=== PATIENT | female | born 1960 | race Caucasian/White ===

== ENCOUNTER 2017-11-24 13:50 | Outpatient (CLI) | payer BC | END 2017-11-24 13:51 | disposition home or self-care (01) | LOC: BICMAMMO 13:50 | PROVIDERS: ATTEND Family Medicine | DX: Z12.31 Encounter for screening mammogram for malignant neoplasm of breast (principal); Z80.3 Family history of malignant neoplasm of breast | CPT/HCPCS: 77063; 77067 ==

== ENCOUNTER 2018-11-26 08:05 | Outpatient (CLI) | payer BC ==
--- NOTE | 2018-11-26 09:53 | MMO ---
Bilateral MAMMO Bilat Screen [facility]. CLINICAL HISTORY: Patient is 58 years old and is seen for screening. The patient has the following family history of breast cancer: maternal grandmother. The patient has no personal history of cancer. VIEWS: The views performed were: bilateral craniocaudal with tomosynthesis and bilateral mediolateral oblique with tomosynthesis. FILMS COMPARED: The present examination has been compared to prior imaging studies performed at [facility] on 10/11/2014, 11/24/2015, 10/17/2016 and 11/24/2017. MAMMOGRAM FINDINGS: There are scattered fibroglandular densities. Benign calcifications are noted bilaterally. There are no suspicious masses, suspicious calcifications, or new areas of architectural distortion. IMPRESSION: THERE IS NO MAMMOGRAPHIC EVIDENCE OF MALIGNANCY. A ROUTINE FOLLOW-UP MAMMOGRAM IN 1 YEAR IS RECOMMENDED. THE RESULTS OF THIS EXAM WERE SENT TO THE PATIENT. ACR BI-RADS Category 2 - Benign finding MAMMOGRAPHY NOTE: 1. A negative mammogram report should not delay a biopsy if a dominant of clinically suspicious mass is present. 2. Approximately 10% to 15% of breast cancers are not detected by mammography. 3. Adenosis and dense breasts may obscure an underlying neoplasm.
== END 2018-11-26 08:06 | disposition home or self-care (01) ==
LOC: BICMAMMO 08:05
PROVIDERS: ATTEND Family Medicine
DX: Z12.31 Encounter for screening mammogram for malignant neoplasm of breast (principal); Z80.3 Family history of malignant neoplasm of breast
CPT/HCPCS: 77063; 77067

== ENCOUNTER 2018-12-28 15:22 | Outpatient (CLI) | payer BC ==
--- NOTE | 2018-12-28 16:36 | ULT ---
SOFT TISSUE ULTRASOUND TRUNK: COMPARISON: None. FINDINGS: Corresponding to the area of palpation, in the deep fat, just below the superficial fascia and superf icial to the muscle, is a [id number]-[id number]-abiv 3.3 x 1 cm mass, which has a similar architecture to the fa t. This is a mobile mass. IMPRESSION: Soft tissue lipoma. POS: OFF
== END 2018-12-28 15:23 | disposition home or self-care (01) ==
LOC: BICULT 15:22
PROVIDERS: ATTEND Family Medicine
DX: L72.8 Other follicular cysts of the skin and subcutaneous tissue (principal)
CPT/HCPCS: 76705

== ENCOUNTER 2020-02-21 15:00 | Outpatient (CLI) | payer BC ==
--- NOTE | 2020-02-21 15:32 | RAD ---
XR Lumbar Spine 2 Or 3 View HISTORY: Low back pain COMPARISON: None. FINDINGS: Mild degenerative changes are present. No fracture, subluxation or bony destruction is identified. IMPRESSION: Mild lumbar spondylosis
== END 2020-02-21 15:01 | disposition home or self-care (01) ==
LOC: BICRAD 15:00
PROVIDERS: ATTEND Family Medicine
DX: M54.5 Low back pain (principal); M47.816 Spondylosis without myelopathy or radiculopathy, lumbar region
CPT/HCPCS: 36415; 72100; 80048; 82306; 83036; 85025

== ENCOUNTER 2021-12-17 13:55 | Outpatient (CLI) | payer BC | END 2021-12-17 13:56 | disposition home or self-care (01) | LOC: BICMAMMO 13:55 | PROVIDERS: ATTEND Family Medicine | DX: Z12.31 Encounter for screening mammogram for malignant neoplasm of breast (principal); Z80.3 Family history of malignant neoplasm of breast | CPT/HCPCS: 77063; 77067 ==

== ENCOUNTER 2023-12-23 07:42 | Outpatient (CLI) | payer BC | END 2023-12-23 07:43 | disposition home or self-care (01) | LOC: BICMAMMO 07:42 | PROVIDERS: ATTEND Family Medicine | DX: Z12.31 Encounter for screening mammogram for malignant neoplasm of breast (principal); Z80.3 Family history of malignant neoplasm of breast | CPT/HCPCS: 77063; 77067 ==

== ENCOUNTER 2024-12-28 07:59 | Outpatient (CLI) | payer BC | END 2024-12-28 08:00 | disposition home or self-care (01) | LOC: BICMAMMO 07:59 | PROVIDERS: ATTEND Obstetrics & Gynecology | DX: Z12.31 Encounter for screening mammogram for malignant neoplasm of breast (principal); Z80.3 Family history of malignant neoplasm of breast | CPT/HCPCS: 77063; 77067 ==